=== PATIENT | female | born 1980 | race Caucasian/White ===

== ENCOUNTER → 2016-07-02 | Outpatient (CLI) | payer BC ==
--- NOTE | 2016-07-02 14:40 | CR ---
EXAMINATION: Hysterosalpingogram. HISTORY: Infertility. Evaluate for tubal patency. PROCEDURE/FINDINGS: Written informed consent was obtained from the patient. Perineum was prepped wit h Betadine and after placement of vaginal speculum, the cervix was prepped with Betadine. A 5 [place] catheter was placed and after inflation of the balloon, 20 cc of contrast was injected until cornua l regions are filled and multiple views of the pelvis are obtained. The endocervical canal was moderately dilated, making it difficult to get a good seal with the dilat ed balloon. The balloon dislodged harshly through the procedure and a new catheter was inserted. The uterine cavity is normal in configuration. No suspicious filling defects are seen. The right and left fallopian tubes are patent and spillage of contrast is noted into peritoneal cavi ty bilaterally. However due to moderate pressure to demonstrate spillage with intravasation into the uterine wall is noted. IMPRESSION: 1. Moderately dilated endocervical canal. 2. The fallopian tubes are patent demonstrating spillage, however a very small amount of spillage wa s noted under notable pressure.
[2016-07-02] MEDS: Iopamidol 612 MG/ML 100 ML Bottle IVPUSH STA (16:08)
== END | disposition home or self-care (01) ==
LOC: MW.DI 13:06
PROVIDERS: ATTEND Obstetrics & Gynecology
DX: Z31.49 Encounter for other procreative investigation and testing (principal)
CPT/HCPCS: 58340; 74740; Q9967

== ENCOUNTER 2024-09-07 09:28 | Day surgery (SDC) | payer BC ==
[~2024-09-07 09:28] MED LIST: Sodium Chloride 0.9% 10 ML Syringe FLUSH PRN; Sodium Chloride 0.9% 2.5 ML Syringe FLUSH PRN; Sodium Chloride 0.9% 20 ML SDV IV PRN
[2024-09-07] MEDS: Lactated Ringers 1,000 ML IV SCH (10:02)
[2024-09-07] MEDS ORDERED: propofoL 500 MG/50 ML 50 ML ONE (11:45)
[2024-09-07] MEDS ORDERED: Phenylephrine HCl In 0.9% NaCl 1 MG/10 ML Syringe ONE (11:46)
[2024-09-07] MEDS ORDERED: dexmedeTOMIDine HCl 200 MCG/2 ML SDV ONE (11:54)
[2024-09-07 14:00] VITALS: BP 94/57; PULSE 80
== END 2024-09-07 12:55 | disposition home or self-care (01) ==
LOC: MW.SDS 09:28
PROVIDERS: ATTEND Surgery
DX: Z12.11 Encounter for screening for malignant neoplasm of colon (principal); K31.7 Polyp of stomach and duodenum; R13.13 Dysphagia, pharyngeal phase; K21.9 Gastro-esophageal reflux disease without esophagitis; F41.9 Anxiety disorder, unspecified; Z79.899 Other long term (current) drug therapy
CPT/HCPCS: 43239; 45378; J2371; J2704; J7120; 00813